=== PATIENT | female | born 1985 | race African-American/Black ===

== ENCOUNTER 2019-06-09 20:59 | Emergency (ER) | payer OTHER ==
[~2019-06-09] VITALS: Ht 160 cm; Wt 76.2 kg
[2019-06-09] MEDS ORDERED: PROAIR HFA8.5 GM INH (21:06)
[2019-06-09] MEDS ORDERED: TOPROL XL25 MG PO (21:06)
[2019-06-09] MEDS ORDERED: TESSALON PERLE100 M1 PO (21:41)
[2019-06-09 21:57] VITALS: BP 137/102
== END 2019-06-09 21:57 | disposition home or self-care (01) ==
LOC: ER 20:59
DX: R05 Cough (principal); R11.2 Nausea with vomiting, unspecified; I10 Essential (primary) hypertension; J45.909 Unspecified asthma, uncomplicated